=== PATIENT | female | born 1995 | race Caucasian/White ===

== ENCOUNTER 2023-10-06 15:48 | Emergency (ER) | payer OTHER ==
[~2023-10-06] VITALS: Ht 175.3 cm; Wt 100.0 kg
[2023-10-06 15:54] VITALS: TEMP 98.4
[2023-10-06] MEDS ORDERED: Sulfamethoxazole/Trimethoprim 800-160 MG TAB PO ONE (16:45)
[2023-10-06] MEDS ORDERED: Ketorolac 60 MG/2 ML VIAL IM ONE (16:45)
[2023-10-06] MEDS ORDERED: BACTRIM DS 8001 TAB PO (16:51)
[2023-10-06 17:10] VITALS: BP 122/83; PULSE 89
== END 2023-10-06 17:10 | disposition home or self-care (01) ==
LOC: COL.ER 15:48
DX: M26.621 Arthralgia of right temporomandibular joint (principal); Z98.890 Other specified postprocedural states
CPT/HCPCS: J1885